=== PATIENT | male | born 1970 | race Hispanic/Latino ===

== ENCOUNTER 2018-12-04 15:44 | Emergency (ER) | payer SELFPAY ==
--- NOTE | 2018-12-04 17:34 | Emergency Department Report ---
ED ENT HPI - General Chief complaint: Dental/Oral Stated complaint: INFECTION (GUMS) Time Seen by Provider: 12/04/18 17:29 Source: patient Mode of arrival: Ambulatory Limitations: No Limitations - History of Present Illness Initial comments: Patient is a very pleasant 48-year-old male who comes to the ER with acute on chronic dental caries and gum disease. He has diffuse mandibular frontal gingivitis. Patient does not have a dentist and his limited resources. Past medical history Mental health only Home medicines include Seroquel and trazodone Allergy to Thorazine complaint: tooth pain -: Gradual 1 - area of pain Severity: moderate Quality: aching Consistency: intermittent Improves with: none Worsens with: none Context- Dental: history of dental caries, trauma (as child) Associated Symptoms: gum swelling. denies: fever, cough, toothache, pain with swallowing, sore throat, tinnitus, hearing loss, discharge from ear, rhinorrhea - Related Data Previous Rx's Medication Instructions Recorded Last Taken Type Amoxicillin 500 mg PO BID #20 capsule 12/04/18 Unknown Rx ED Dental HPI - General Chief complaint: Dental/Oral Stated complaint: INFECTION (GUMS) Time Seen by Provider: 12/04/18 17:29 Source: patient Mode of arrival: Ambulatory Limitations: No Limitations - Related Data Previous Rx's Medication Instructions Recorded Last Taken Type Amoxicillin 500 mg PO BID #20 capsule 12/04/18 Unknown Rx ED Review of Systems ROS: Stated complaint: INFECTION (GUMS) Other details as noted in HPI Comment: All other systems reviewed and negative Constitutional: denies: chills, fever Eyes: denies: eye pain ENT: as per HPI, dental pain. denies: throat pain Respiratory: denies: cough Cardiovascular: denies: palpitations Endocrine: denies: flushing Gastrointestinal: denies: abdominal pain Genitourinary: denies: urgency Musculoskeletal: denies: back pain Skin: denies: as per HPI, lesions Neurological: denies: headache Psychiatric: denies: anxiety Hematological/Lymphatic: denies: easy bleeding ED Past Medical Hx - Past Medical History Previous Medical History?: Yes Additional medical history: mental health - Surgical History Past Surgical History?: No - Family History Family history: no significant - Medications Home Medications: Home Medications Medication Instructions Recorded Confirmed Last Taken Type Amoxicillin 500 mg PO BID #20 capsule 12/04/18 Unknown Rx ED Physical Exam - General Limitations: No Limitations General appearance: alert - Head Head exam: Present: atraumatic - Eye Eye exam: Present: normal appearance, PERRL Pupils: Present: normal accommodation - ENT ENT exam: Present: normal exam, mucous membranes moist - Expanded ENT Exam Expanded Mouth exam: Present: normal external inspection. Absent: drooling, trismus, muffled voice, tongue normal, tongue elevation Teeth exam: Present: normal inspection, dental caries 1 - Other (area of pain) Throat exam: Negative: tonsillar erythema, tonsillomegaly, tonsillar exudate, L peritonsillar mass - Neck Neck exam: Absent: normal inspection - Respiratory Respiratory exam: Present: normal lung sounds bilaterally - Cardiovascular Cardiovascular Exam: Present: regular rate - GI/Abdominal GI/Abdominal exam: Present: soft - Extremities Exam Extremities exam: Present: normal inspection - Back Exam Back exam: Present: normal inspection - Neurological Exam Neurological exam: Present: alert, oriented X3 ED Medical Decision Making - Medical Decision Making simple caries no abscess no ludwigs controlling secretions taking po vss without fever educated on local dental clinics Critical care attestation.: If time is entered above; I have spent that time in minutes in the direct care of this critically ill patient, excluding procedure time. ED Disposition Clinical Impression: Dental caries, Gingival disease Disposition: DC-01 TO HOME OR SELFCARE Is pt being admited?: No Does the pt Need Aspirin: No Condition: Stable Instructions: Dental Caries (ED), Gingivitis (ED) Additional Instructions: MED ORDERED UNTIL GONE AMOX FREE AT [facility] WELL WITH WATER MOTRIN OR TYLENOL FOR PAIN OR FEVER DIET TOLERATED ACTIVITY TOLERATED FOLLOW UP dentist referrals below good oral care Prescriptions: Amoxicillin 500 mg PO BID #20 capsule Referrals: [facility] [Outside] - 3-5 Days [facility] [Outside] - 3-5 Days Time of Disposition: 17:32
[2018-12-04 17:56] VITALS: BP 101/64
== END 2018-12-04 17:43 | disposition home or self-care (01) ==
LOC: ED 15:44
DX: K02.9 Dental caries, unspecified (principal); K05.00 Acute gingivitis, plaque induced
CPT/HCPCS: 99281